=== PATIENT | male | born 1940 | race Caucasian/White ===

== ENCOUNTER → 2018-05-03 | Outpatient (REF) | payer MEDICARE ==
[~2018-05-03] MED LIST: ELIQUIS5 MG PO; GLIPIZIDE5 MG PO; HYDRO PO; JANUVIA100 MG PO; LIPITOR40 M1 PO; METFORMIN500 MG PO; QUINAPRIL PO
[2018-05-03 15:30] LABS: HEMATOCRIT 42.4 % (39.0-50.0); HEMOGLOBIN 13.7 g/dl (14.0-18.0); IMMATURE GRANULOCYTES 0.6 % (0.0-5.0); MEAN CELL VOLUME 91.8 fL CALC (80.0-100.0); MEAN CORPUSCULAR HGB 29.7 pG CALC (26.0-32.0); MEAN CORPUSCULAR HGB CONC 32.3 g/L CALC (32.0-36.0); NEUT# 7.42 thou/uL (1.82-7.42); RED BLOOD COUNT 4.62 mill/uL (4.70-6.10); RED CELL DISTRI WIDTH 13.7 % (11.5-15.5)
== END | disposition home or self-care (01) ==
LOC: LAB 15:16
PROVIDERS: ATTEND Internal Medicine
DX: C34.12 Malignant neoplasm of upper lobe, left bronchus or lung (principal); I48.91 Unspecified atrial fibrillation

== ENCOUNTER → 2018-05-13 | Outpatient (REF) | payer MEDICARE ==
[2018-05-13 07:56] LABS: HEMATOCRIT 45.2 % (39.0-50.0); HEMOGLOBIN 14.1 g/dl (14.0-18.0); MEAN CELL VOLUME 94.8 fL CALC (80.0-100.0); MEAN CORPUSCULAR HGB 29.6 pG CALC (26.0-32.0); MEAN CORPUSCULAR HGB CONC 31.2 g/L CALC (32.0-36.0); RED BLOOD COUNT 4.77 mill/uL (4.70-6.10); RED CELL DISTRI WIDTH 13.9 % (11.5-15.5)
[2018-05-13 08:16] LABS: ALBUMIN 3.9 g/dL (3.2-5.0); ALKALINE PHOSPHATASE 112 u/l (38-126); ANION GAP 15 (6-22 (CALC)); BILIRUBIN, TOTAL 0.6 mg/dL (0.0-1.4); BUN 24 mg/dL (8-23); BUN/CREATININE RATIO 23 (12-20 (CALC)); CARBON DIOXIDE 25 mmol/l (22-30); CHLORIDE 106 mmol/l (95-108); CREATININE 1.1 mg/dL (0.7-1.3); GFR > 60 ML/MIN (>=60 (CALC)); GFR FOR AFR.AMER. > 60 ML/MIN (>=60 (CALC)); POTASSIUM 4.7 mmol/l (3.5-5.1); SGOT/AST 22 u/l (19-48); SODIUM 141 mmol/l (137-146); TOTAL PROTEIN 6.4 g/dL (6.3-8.2)
== END | disposition home or self-care (01) ==
LOC: LAB 06:58
PROVIDERS: ATTEND Internal Medicine
DX: E11.69 Type 2 diabetes mellitus with other specified complication (principal); I10 Essential (primary) hypertension; I48.0 Paroxysmal atrial fibrillation